=== PATIENT | male | born 1930 | race Caucasian/White ===

== ENCOUNTER 2017-05-30 11:02 | Emergency (ER) | payer OTHER ==
[~2017-05-30] VITALS: Ht 177.8 cm; Wt 72.6 kg
[2017-05-30] MEDS ORDERED: LIDOCAINE 2% JELLY 11ml (GLYDO) ONE (11:18)
[2017-05-30] MEDS ORDERED: LIDOCAINE HCL 2% TOP JELLY 5ML TOP ONE (11:30)
[2017-05-30 12:41] LABS: Urine Bacteria NONE SEEN /hpf (None Seen); Urine Blood Negative /uL (Negative); Urine WBC <1 /hpf (0 - 3)
[2017-05-30 13:00] LABS: Basophils # (auto) 0.1 uL; Eosinophils # (auto) 0 uL; Eosinophils % (auto) 0.4 % (0.0-7.0); Hematocrit 42.6 % (41.0-53.0); Hemoglobin 14.4 g/dL (13.5-17.5); Lymphocytes # (auto) 2.5 uL; Lymphocytes % (auto) 36.7 % (10.0-50.0); Mean Corpuscular Hemoglobin 32.1 pg (28.0-32.0); Mean Corpuscular Hgb Conc. 33.9 g/dL (32.0-36.0); Mean Corpuscular Volume 94.6 fL (80.0-100.0); Monocytes # (auto) 0.4 uL; Monocytes % (auto) 5.7 % (0.0-12.0); Neutrophils # (auto) 3.9 uL; Neutrophils % (auto) 56.2 % (37.0-80.0); Nucleated Red Blood Cells % 0.1 %; Platelet Count (auto) 323 10^3/uL (140-450); Red Blood Cells 4.51 10^6/uL (4.5-5.90); Red Cell Distribution Width 13.6 % (11.8-14.3); White Blood Cell 6.9 10^3/uL (4.4-10.8)
[2017-05-30 13:12] LABS: INR 0.99 (0.9-1.15); Partial Thromboplastin Time 28.2 sec (22.64-33.71); Prothrombin Time 10.8 sec (9.37-12.3)
[2017-05-30] MEDS ORDERED: LORazepam 2MG/ML-1ML VIAL ONE (13:12)
[2017-05-30 13:17] LABS: Alanine Aminotransferase 35 U/L (16-61); Albumin 3.2 g/dL (3.4-5.0); Anion Gap 7 (5-15); Aspartate Aminotransferase 23 U/L (15-37); BUN/Creatinine Ratio 20.8; Blood Urea Nitrogen 21 mg/dL (7-18); Calcium 9.2 mg/dL (8.5-10.1); Carbon Dioxide 22 mmol/L (21-32); Chloride 109 mmol/L (98-107); GFR African American 90 mL/min; GFR Non-African American 74 mL/min; Glucose 87 mg/dL (74-106); Potassium 4.2 mmol/L (3.5-5.1); Sodium 138 mmol/L (136-145)
[2017-05-30 13:21] LABS: Alkaline Phosphatase 86 U/L (45-117); Bilirubin, Total 0.9 mg/dL (0.2-1.0); Total Protein 6.3 g/dL (6.4-8.2)
[2017-05-30] MEDS ORDERED: LORazepam 2MG/ML-1ML VIAL IV ONE ×2 (13:30→13:45)
[2017-05-30] MEDS ORDERED: cefTRIAXone 1GM/10ml IVPUSH 10 ML IV ONE (14:15)
[2017-05-30] MEDS ORDERED: AZITHROMYCIN 500MG/ 250ML 250 ML IV ONE (14:15)
[2017-05-30 15:36] VITALS: BP 105/59
== END 2017-05-30 13:34 | disposition short-term general hospital (02) ==
LOC: EDBD 11:02 → ER 11:02
DX: G93.41 Metabolic encephalopathy (principal); R56.9 Unspecified convulsions; J18.9 Pneumonia, unspecified organism
CPT/HCPCS: 36415; 51702; 70450; 71045; 80053; 81001; 83880; 84484; 85025; 85610; 85730; 96365; 96375; 96376; 99285; J0456; J2060